=== PATIENT | male | born 1960 | race African-American/Black ===

== ENCOUNTER 2019-12-13 14:05 | Outpatient (CLI) | payer OTHER, SELFPAY ==
[2019-12-13 15:02] LABS: Basophils Percent Auto 0.4 % (0.2-1.2); Eosinophils Absolute Auto 0.2 K/mm3 (0-0.3); Eosinophils Percent Auto 3.4 % (0-4.4); Hematocrit 43.9 % (42.0-52.0); Hemoglobin 13.6 g/dL (14.0-18.0); Immature Granulocyte Absolute 0.02 K/mm3 (0.00-0.031); Immature Granulocyte Percent A 0.4 % (0-0.5); Lymphocytes Absolute Auto 2.21 K/mm3 (0.9-3.2); Lymphocytes Percent Auto 39.3 % (18.3-44.2); Mean Corpuscular Hemoglobin 23.5 pg (26-34); Mean Platelet Volume 10.7 fl (7.4-10.4); Monocytes Absolute Auto 0.4 K/mm3 (0.1-0.6); Monocytes Percent Auto 7.6 % (2.6-8.5); Neutrophils Absolute Auto 2.8 K/mm3 (1.3-6.7); Neutrophils Percent Auto 48.9 % (45.5-73.1); Platelet Count Result 276 k/mm3 (150-375); Red Blood Count 5.78 M/mm3 (4.6-6.20); White Blood Count 5.6 K/mm3 (4.5-10.0)
[2019-12-13 15:19] LABS: Alanine Aminotransferase 27 U/L (4-50); Albumin Level 4.4 g/dL (3.5-5.1); Alkaline Phosphatase 71 U/L (38-126); Anion Gap 10.4 mmol/L (7-16); Aspartate Amino Transferase 34 U/L (17-59); Bilirubin,Total 0.4 mg/dL (0.2-1.3); Blood Urea Nitrogen 14 mg/dL (9-20); Calcium 8.8 mg/dL (8.4-10.2); Carbon Dioxide 28 mmol/L (22-30); Chloride 103 mmol/L (98-107); Cholesterol 207 mg/dL (0-200); Estimated Glomerular Filt Rate > 60; Glucose 85 mg/dL (75-110); HDL Direct 50 mg/dL; Potassium 4.4 mmol/L (3.4-5.0); Sodium 137 mmol/L (137-145); Triglycerides 169 mg/dL (<150)
[2019-12-13 15:30] LABS: LDL Cholesterol Direct 109 mg/dL
== END 2019-12-13 14:06 | disposition home or self-care (01) ==
PROVIDERS: PCP Clinical Nurse Specialist; Visit Provider Clinical Nurse Specialist
DX: Z13.228 Encounter for screening for other metabolic disorders (principal); Z12.5 Encounter for screening for malignant neoplasm of prostate; Z13.220 Encounter for screening for lipoid disorders
CPT/HCPCS: 36415; 80053; 80061; 85025; 85306

== ENCOUNTER 2020-10-29 15:35 | Outpatient (CLI) | payer BC, MEDICAID, SELFPAY ==
[2020-10-29 16:15] LABS: Alanine Aminotransferase 23 U/L (4-50); Albumin Level 4.2 g/dL (3.5-5.1); Alkaline Phosphatase 62 U/L (38-126); Aspartate Amino Transferase 39 U/L (17-59); Bilirubin,Total 0.3 mg/dL (0.2-1.3)
== END 2020-10-29 15:36 | disposition home or self-care (01) ==
PROVIDERS: PCP Internal Medicine; Visit Provider Podiatrist Foot & Ankle Surgery
DX: B35.1 Tinea unguium (principal)
CPT/HCPCS: 36415; 80076

== ENCOUNTER 2021-02-12 15:40 | Emergency (ER) | payer BC, MEDICAID, SELFPAY ==
--- NOTE | ~2021-02-12 | XR_ITS ---
EXAMINATION: XR shoulder RT min 2V INDICATION: Right shoulder pain TECHNIQUE: Four views of the right shoulder are submitted. COMPARISON: None FINDINGS: Normal alignment. No fracture. There is moderate osteoarthritis of the acromioclavicular alcira int and mild osteoarthritis of the glenohumeral joint. Soft tissues are unremarkable. IMPRESSION: 1. No acute osseous abnormality. Reviewed, dictated and finalized at location A.
[2021-02-12 15:42] VITALS: BP 150/78; PULSE 85; RESP 18; TEMP 37.1; O2SAT 100
--- NOTE | 2021-02-12 15:58 | ED.EXTPRO ---
HPI - Extremity Problem General Chief complaint: Extremity Problem,Nontraumatic Stated complaint: SHOULDER PAIN Time Seen by Provider: 02/12/21 15:56 Source: RN notes reviewed History of Present Illness HPI Narrative: Patient presents emergency department from home for right shoulder pain. Patient states the pain has been ongoing for the past 6 months he denies any direct trauma or injury but states it did seem to occur after he received his Covid vaccination he states that the arm hurts when he raises it up over his head he denies any pain when is laying at rest on his side he denies any fevers or chills chest pain shortness of breath or any other symptoms states he not taking medication for the symptoms today Related Data Home Medications Medication Instructions Recorded Confirmed ferrous sulfate 325 mg (65 mg 325 mg PO DAILY 01/03/20 07/24/20 iron) tablet Allergies Allergy/AdvReac Type Severity Reaction Status Date / Time No Known Allergies Allergy Verified 02/12/21 15:56 Review of Systems Review of Systems: Gen.: Denies fevers or chills CV: Denies chest pain Respiratory: Denies shortness of breath Musculoskeletal: See HPI Neuro: Denies numbness, tingling, weakness Skin: Denies rash Endo: Denies DM PMFSH Past Medical History Medical History Broken wrist Right Cough due to HARDIK inhibitor Hyperlipidemia Family History Family History Sibling Cerebrovascular accident Social History Social History Smoking status: Never smoker Alcohol intake: never Substance use: never Exam Narrative: APPEARANCE: No acute distress, nontoxic, resting in bed EYES: EOMI HEENT: Normocephalic, atraumatic, RESPIRATORY: No respiratory distress Clear to auscultation bilaterally with no rhonchi wheezing or rales. CARDIOVASCULAR: Regular rate and rhythm without murmurs rubs or gallops. MUSCULOSKELETAl: Moves all extremities. No clubbing, cyanosis or edema. Palpation of the right anterior medial shoulder with point tenderness present no pain when arm is at rest pain to side pain with flexion of the shoulder greater than 45 degrees and abduction of the shoulder with the arm over the head no tenderness of the right elbow or wrist radial pulse 2+ neurovascular intact no overlying swelling or erythema NEURO: Awake and alert. Following commands, speech normal, no focal deficits SKIN:: Warm, dry. No rashes lesions or abrasions PSYCHIATRIC: Normal affect/mood, Course Course Emergency Course: Patient states at work he does throw a lot of things into a large garbage bin and this seems to exacerbate his pain Discussed with patient results of workup and diagnosis. Discussed need for follow-up with primary care, proper use of medication, and reasons to return to the emergency department. Patient understands and agrees to current treatment plan Vital Signs Vital signs: Vital Signs Temperature 98.7 F 02/12/21 15:42 Pulse Rate 85 02/12/21 15:42 Respiratory Rate 18 02/12/21 15:42 Blood Pressure 150/78 H 02/12/21 15:42 Pulse Oximetry 100 02/12/21 15:42 Temperature 98.7 F 02/12/21 15:42 Pulse Rate 85 02/12/21 15:42 Respiratory Rate 18 02/12/21 15:42 Blood Pressure 150/78 H 02/12/21 15:42 Pulse Oximetry 100 02/12/21 15:42 MDM - Extremity (Nontraumatic) MDM Narrative Medical decision making narrative: Patient?s injury is consistent with muscular skeletal etiology. No signs of neurologic or vascular compromise to exam. Compartments are soft without signs of compartment syndrome. Pain is consistent with exam and injury Imaging Data Radiologist's impression: ITS Impressions Shoulder X-Ray 02/12/21 16:18 IMPRESSION: 1. No acute osseous abnormality. Discharge Plan Discharge Clinical Impression: Pain in right shoulder
[2021-02-12] MEDS: IBUPROFEN 600 MG TABLET PO (16:18)
== END 2021-02-12 16:38 | disposition home or self-care (01) ==
PROVIDERS: Emergency Provider Emergency Medicine; PCP Internal Medicine
DX: M25.511 Pain in right shoulder (principal); E78.5 Hyperlipidemia, unspecified
CPT/HCPCS: 73030; 99283; A9270

== ENCOUNTER 2021-03-10 13:27 | Outpatient (RCR) | payer BC, MEDICAID, SELFPAY ==
[2021-03-10 13:56] VITALS: BP_SYST 170
--- NOTE | 2021-03-10 16:05 | PTOPEVAL ---
Thank you for referring Rj Salmeron to [facility].? The patient is scheduled to be seen for therapy?2 x/week for 5 weeks. Please review, sign, date and return this plan of care ONUR. I agree with and certify that the following plan of care is medically necessary. Referring Physician Date Attending Provider: Laura Dave, UTILITY CLERK-C Diagnosis right shoulder pain Onset 02/12/21 Cause lifting object Subjective Information He thinks he lifted something Query Text:As Reported By Patient/ heavy a few months ago while Family working at [employer]. He c/o limitations with with reaching motion in all directions, ADL's. States the right arm feels different . Denies pain at night with sleeping. Diagnostic Tests X-Rays For This Problem Yes: normal Pain Assessment Self Report Pain Assessment Right Shoulder(s) Reported Pain Level 4 Pain Description Aching,Sharp Pain Frequency Acute,Continuous Lowest Pain Intensity 3 Greatest Pain Intensity 8 Pain Aggravating Factors ADL's,Exercise/Activity, Lifting Upper Extremity Range of Motion Scapular/ Shoulder Range of Motion Right Scapular: Retraction Hypomobile Scapular: Protraction Hypomobile Scapular Downward Rotation Hypomobile Scapular Upward Rotation Hypomobile Shoulder Flexion - Active 152 Shoulder Flexion - Passive 155 Shoulder Extension - Active 35 Shoulder Abduction - Active 120 Shoulder Abduction - Passive 170 Shoulder Medial Rotation - Active 45 Shoulder Lateral Rotation - Active 80 Scapular/Shoulder Range of Motion Pain Limitations Upper Extremity Muscle Strength Testing General Upper Extremity Strength Reason Not Measured WNL/Left Scapular/Shoulder Right Scapular Retraction - Rhomboid 3- Fair - Scapular Retraction - Middle Trapezius 3- Fair - Scapular Retraction - Lower Trapezius 3- Fair - Shoulder Flexion Strength 3+ Fair + Shoulder Extension Strength 4- Good - Shoulder Abduction Strength 3+ Fair + Shoulder Medial Rotation Strength 5 Normal Shoulder Lateral Rotation Strength 5 Normal Shoulder Strength Comments pain with flex/ext and abduction resistance Posture Sitting Position Head/C-Spine Posture Forward Head Thoracic Spine Posture Increased Kyphosis Shoulder Posture (L) Rounded,(R) Rounded,(L) Forward,(R) Forward,(R) Elevated Scapula Posture
--- NOTE | 2021-03-20 14:36 | PCPTNOTE ---
Patient did not show up for scheduled appointment this date; called to remind patient of next appointment but mailbox was full.
--- NOTE | 2021-03-31 16:49 | PCPTNOTE ---
Patient did not show up for scheduled appointment this date; called for reminder on next appointment which patient answered stating made pervious appointments which he wasn't aware of when his appointments were. Already rescheduled next weeks appointment due to having car worked on.
--- NOTE | 2021-04-09 10:58 | PCPTNOTE ---
Patient called & cancelled scheduled appointment this date due to not having car back from shop wanted to reschedule but notified front office developer of reeval scheduled for Wednesday and he is at his policy limit for no shows and cancellations.
--- NOTE | 2021-04-15 14:47 | PCPTNOTE ---
Patient did not show up for scheduled appointment this date. He had been reminded of his appt and reviewed cancelation policy. Will DC him at this time.
--- NOTE | 2021-04-15 14:47 | PCPTNOTE ---
Admitting Provider: Attending Provider: ARTIS Chapman Patient:Rj Salmeron Date of :1960 Discharge Summary Physical Therapy Patient has not returned for any further treatments since his initial evaluation on 03/10/2021, therefore he will be discharged at this time. He did not attend his follow up visits with 5 missed visits. No goals have been achieved due to he did not f/u with therapy. Will DC skilled therapy services at this time. Thank you for referring this patient to [facility]. Please review, sign, date and return this discharge summary ONUR. I have been updated about the patient's current status and I agree with discharge from the above service at this time. Referring Physician Date
== END 2021-04-16 08:35 | disposition home or self-care (01) ==
LOC: ANHPT 13:27
PROVIDERS: PCP Internal Medicine; Visit Provider Clinical Nurse Specialist
DX: M25.511 Pain in right shoulder (principal)
CPT/HCPCS: 97110; 97161

== ENCOUNTER 2021-05-28 15:31 | Emergency (ER) | payer BC, MEDICAID, SELFPAY ==
[2021-05-28 15:40] VITALS: BP 158/96; PULSE 85; RESP 18; TEMP 36.6; O2SAT 100
--- NOTE | 2021-05-28 16:19 | ED.SKABFB ---
HPI - Skin/Abscess/Foreign Bdy General Chief complaint: Skin/Abscess/Foreign Body Stated complaint: L middle finger injury Time Seen by Provider: 05/28/21 16:20 Source: patient Mode of arrival: ambulatory Limitations: no limitations History of Present Illness HPI narrative: 60-year-old male presenting for complaint of middle finger pain and swelling around fingernail for about 3 days. Endorses a history of paronychia in the remote past. Currently rates pain about a 5 out of 10. Has not taken anything for symptoms. MD complaint: rash Related Data Allergies Allergy/AdvReac Type Severity Reaction Status Date / Time No Known Allergies Allergy Verified 02/12/21 15:56 Review of Systems Review of Systems: CONSTITUTIONAL: Denies body aches, fever, chills, or sweats. EYES: Denies visual changes, redness, or discharge. ENT: Denies rhinorrhea, congestion, sore throat, or otalgia. CARDIOVASCULAR: Denies chest pain, palpitations, or edema. RESPIRATORY: Denies cough or dyspnea. GASTROINTESTINAL: Denies abdominal pain, nausea, vomiting, or diarrhea. GENITOURINARY: Denies dysuria or hematuria. SKIN: endorses pain, redness, swelling surrounding left middle finger nail MUSCULOSKELETAL: Denies back pain, joint pain, or myalgia. NEUROLOGIC: Denies headache, numbness, tingling, or weakness. PSYCH: Denies depression or anxiety. PMFSH Past Medical History Medical History Broken wrist Right Cough due to HARDIK inhibitor Hyperlipidemia Family History Family History Sibling Cerebrovascular accident Social History Social History Smoking status: Never smoker Alcohol intake: never Substance use: never Comments At time of signature, I have reviewed and agree with nursing past medical, surgical, social and family history unless otherwise noted. Please see nursing chart for further information. There is no relevant family history pertinent to the presenting complaint Exam Narrative: GENERAL: Well-appearing, well-nourished, and in no acute distress. HEAD: Normocephalic, atraumatic. EYES: PERRLA, conjunctivae clear, and EOMI. ENT: Mucous membranes moist. NECK: Supple. No lymphadenopathy CHEST: Clear to auscultation. No respiratory distress. HEART: Regular rate and rhythm. SKIN: Warm, dry. Left third digit paronychia NEURO: Alert and oriented x3. PSYCH: Normal mood and affect Course Course Emergency Course: Patient is aware of diagnosis, understands and agrees to treatment plan. Anticipatory guidance given. Patient agrees to follow-up as directed and is aware of reasons to seek care at the emergency department. Portions of this record may have been created with voice recognition software Level of Care: Express Care Visit Vital Signs Vital signs: Vital Signs Temperature 97.9 F 05/28/21 15:40 Pulse Rate 85 05/28/21 15:40 Respiratory Rate 18 05/28/21 15:40 Blood Pressure 158/96 H 05/28/21 15:40 Pulse Oximetry 100 05/28/21 15:40 Temperature 97.9 F 05/28/21 15:40 Pulse Rate 85 05/28/21 15:40 Respiratory Rate 18 05/28/21 15:40 Blood Pressure 158/96 H 05/28/21 15:40 Pulse Oximetry 100 05/28/21 15:40 Reviewed Procedures Abscess I/D left 3rd digit: Date of Incision: 05/28/21 Time of Incision: 16:48 Side (if applicable): left Sedation/analgesia: none Technique: needle aspiration Irrigation: No Packing used?: none I&D Results: Pus Abcess I&D Additional Comments: paronychia drained with #18 g needle after soaking, large amount purulent material expressed; bandaid and LEXX applied, pt tolerated well MDM - Skin/Abscess/Foreign Bdy MDM Narrative Medical decision making narrative: appropriate for initial outpatient treatment; discussed the importance of follow-up, josé
== END 2021-05-28 16:59 | disposition home or self-care (01) ==
PROVIDERS: Emergency Provider Nurse Practitioner Family
DX: L03.012 Cellulitis of left finger (principal); E78.5 Hyperlipidemia, unspecified
CPT/HCPCS: 10160; 99213; G0463

== ENCOUNTER 2021-12-15 08:43 | Outpatient (CLI) | payer BC, MEDICAID, SELFPAY ==
[2021-12-15 18:48] LABS: Basophils Percent Auto 0.8 % (0.2-1.2); Eosinophils Absolute Auto 0.1 K/mm3 (0-0.3); Eosinophils Percent Auto 1.6 % (0-4.4); Hematocrit 45.3 % (42.0-52.0); Hemoglobin 13.3 g/dL (14.0-18.0); Immature Granulocyte Absolute 0.01 K/mm3 (0.00-0.031); Immature Granulocyte Percent A 0.2 % (0-0.5); Lymphocytes Absolute Auto 2.06 K/mm3 (0.9-3.2); Lymphocytes Percent Auto 41.4 % (18.3-44.2); Mean Corpuscular HGB Conc 29.4 g/dl (32-36); Mean Corpuscular Hemoglobin 23.1 pg (26-34); Mean Corpuscular Volume 78.6 fl (80-100); Mean Platelet Volume 10.8 fl (7.4-10.4); Monocytes Absolute Auto 0.5 K/mm3 (0.1-0.6); Monocytes Percent Auto 9.4 % (2.6-8.5); Neutrophils Absolute Auto 2.3 K/mm3 (1.3-6.7); Neutrophils Percent Auto 46.6 % (45.5-73.1); Platelet Count Result 257 k/mm3 (150-375); Red Blood Count 5.76 M/mm3 (4.6-6.20)
[2021-12-15 19:05] LABS: Alanine Aminotransferase 23 U/L (6-50); Albumin Level 4.3 g/dL (3.5-5.1); Alkaline Phosphatase 74 U/L (38-126); Anion Gap 10 mmol/L (8-16); Aspartate Amino Transferase 42 U/L (17-59); Bilirubin,Total 0.6 mg/dL (0.2-1.3); Blood Urea Nitrogen 17 mg/dL (9-20); Carbon Dioxide 27 mmol/L (22-30); Chloride 100 mmol/L (98-107); Cholesterol 193 mg/dL (0-200); Estimated Glomerular Filt Rate > 60; Glucose 125 mg/dL (65-110); HDL Direct 49 mg/dL; Potassium 4.2 mmol/L (3.4-5.0); Sodium 137 mmol/L (137-145); Triglycerides 108 mg/dL (<150)
[2021-12-15 19:16] LABS: LDL Cholesterol Direct 93 mg/dL
[2021-12-15 19:29] LABS: Prostate Specific Antigen 0.6 ng/mL (< OR = 4.0)
[2021-12-17 10:29] LABS: Hemoglobin A1C 6.1 % (<5.7)
== END 2021-12-15 08:44 | disposition home or self-care (01) ==
LOC: ANHGOSHLAB 08:45
PROVIDERS: PCP Internal Medicine; Visit Provider Nurse Practitioner
DX: E78.5 Hyperlipidemia, unspecified (principal); R73.9 Hyperglycemia, unspecified; I10 Essential (primary) hypertension; Z12.5 Encounter for screening for malignant neoplasm of prostate
CPT/HCPCS: 36415; 80053; 80061; 83036; 84153; 85025; G0103

== ENCOUNTER 2022-02-13 19:31 | Emergency (ER) | payer OTHER, BC, MEDICAID, SELFPAY ==
--- NOTE | 2022-02-13 19:32 | ED.WOUNDLAC ---
HPI - Wound/Laceration General Stated Complaint: L HAND LACERATION Time Seen by Provider: 02/13/22 19:32 Source: patient Mode of arrival: ambulatory Limitations: no limitations History of Present Illness HPI narrative: Mr. Salmeron is a 61-year-old male patient presenting to the clinic today with complaints of a cut to his left hand/palm. He reports he stabbed himself with a knife at work approximately 20 minutes prior to arrival. Bleeding is controlled. States they put some liquid Band-Aid on it however that did not help. States that his tetanus shot is up-to-date within the last 5 years Related Data Allergies Allergy/AdvReac Type Severity Reaction Status Date / Time No Known Allergies Allergy Verified 02/13/22 19:57 Review of Systems Review of Systems: Pertinent positives per HPI. Patient denies any fever, chills, rash, headache, visual changes, dizziness, cough, runny nose, sore throat, shortness of breath, chest pain, palpitations, nausea, vomiting, diarrhea, constipation, abdominal pain, or any urinary issues. PMFSH Past Medical History Medical History Broken wrist Right Cough due to HARDIK inhibitor Hyperlipidemia Family History Family History Sibling Cerebrovascular accident Social History Social History Smoking status: Never smoker Alcohol intake: never Substance use: never Comments At the time of my signature, I reviewed and agree with the nursing past medical, surgical, social, and family history. There is no relevant family history pertinent to the patient complaint. Exam Narrative: General: Well-developed, well nourished, in no apparent distress Head: Normocephalic, atraumatic. Cardio: Regular rate and rhythm, s1 and s2 normal, no murmur appreciated. Resp: Clear to auscultation bilaterally, no rhonchi, rales, wheezing or rubs. Integumentary: [place], warm, and dry, 1.5 cm laceration to the mid palm of the left hand. Bleeding controlled. Course Course Emergency Course: Portions of this record may have been created with voice recognition software. Level of Care: Express Care Visit Vital Signs Vital signs: Vital signs reviewed Procedures Laceration Laceration 1: Date: 02/13/22 Site: hand Side (If applicable): left Size (cm): 1.5 Description: linear Depth: simple, single layer Local Anesthetic: lidocaine 1% Amount of anesthesia used (mL): 2 Pre-repair: wound explored and irrigated ====== Skin Level ====== Skin layer closed with: nylon Size (cm): 4-0 Number of sutures: 2 Technique: simple, interrupted ====== Subcutaneous Layer ====== ====== Muscle Layer ====== ====== Tendon Layer ====== Dressing: Verbal consent obtained for laceration repair. Risk and benefits explained and patient voiced understanding. Area was cleansed with Techni care and a 25 gauge needle was then used to instill (2) ml of 1% lidocaine without epi into the wound edges. Area was prepped and draped using sterile technique. A 4-0 suture on a p needle was used to place (2) interrupted sutures bringing the wound edges together- well approximated. Patient tolerated procedure well. Sterile dressing applied. MDM - Wound/Laceration MDM Narrative Medical decision making narrative: At the time of visit patient is resting comfortably on the exam table. Laceration repair performed in the clinic today and patient tolerated procedure well. Supportive measures were discussed with the patient he voiced understanding of discharge instructions and agrees to treatment plan. Differential Diagnosis Differential diagnosis: Likely laceration and avulsion of skin Discharge Plan Discharge Clinical Impression: Hand laceration Qualifiers:
[2022-02-13 19:43] VITALS: BP 175/95; PULSE 73; RESP 16; TEMP 36.7; O2SAT 100
[2022-02-13] MEDS: LIDOCAINE HCL 1% LOCAL INJ 2 ML AMPUL INFILTRATE (19:49)
[2022-02-13 19:57] VITALS: BP 175/95; PULSE 73; RESP 16; TEMP 36.7; O2SAT 100
== END 2022-02-13 20:05 | disposition home or self-care (01) ==
PROVIDERS: Emergency Provider Nurse Practitioner Family; PCP Internal Medicine
DX: S61.412A Laceration without foreign body of left hand, initial encounter (principal); W26.0XXA Contact with knife, initial encounter; E78.5 Hyperlipidemia, unspecified
CPT/HCPCS: 12001; 99212; G0463

== ENCOUNTER 2023-02-16 14:53 | Outpatient (CLI) | payer BC, MEDICAID, SELFPAY ==
[2023-02-16 18:27] LABS: Basophils Percent Auto 0.5 % (0.2-1.2); Eosinophils Absolute Auto 0.4 K/mm3 (0-0.3); Eosinophils Percent Auto 5.9 % (0-4.4); Hemoglobin 12.6 g/dL (14.0-18.0); Immature Granulocyte Absolute 0.01 K/mm3 (0.00-0.031); Immature Granulocyte Percent A 0.2 % (0-0.5); Lymphocytes Absolute Auto 2.51 K/mm3 (0.9-3.2); Lymphocytes Percent Auto 37.9 % (18.3-44.2); Mean Corpuscular Hemoglobin 23.4 pg (26-34); Mean Corpuscular Volume 78.1 fl (80-100); Mean Platelet Volume 10.4 fl (7.4-10.4); Monocytes Absolute Auto 0.7 K/mm3 (0.1-0.6); Monocytes Percent Auto 10.6 % (2.6-8.5); Neutrophils Percent Auto 44.9 % (45.5-73.1); Platelet Count Result 299 k/mm3 (150-375); Red Blood Count 5.38 M/mm3 (4.6-6.20); Red Cell Distribution Width 14.2 % (11.5-14.5); White Blood Count 6.6 K/mm3 (4.5-10.0)
[2023-02-16 19:05] LABS: Iron 68 ug/dL (49-181)
[2023-02-16 19:15] LABS: Percent Iron Saturation 28 % (20-50)
[2023-02-16 19:41] LABS: Alanine Aminotransferase 22 U/L (6-50); Albumin Level 4.1 g/dL (3.5-5.1); Alkaline Phosphatase 71 U/L (38-126); Anion Gap 5 mmol/L (8-16); Aspartate Amino Transferase 38 U/L (17-59); Bilirubin,Total 0.5 mg/dL (0.2-1.3); Blood Urea Nitrogen 17 mg/dL (9-20); Calcium 8.8 mg/dL (8.4-10.2); Carbon Dioxide 30 mmol/L (22-30); Chloride 102 mmol/L (98-107); Cholesterol 181 mg/dL (0-200); Estimated Glomerular Filt Rate > 60; Glucose 73 mg/dL (65-110); HDL Direct 46 mg/dL; Potassium 4.1 mmol/L (3.4-5.0); Sodium 137 mmol/L (137-145); Triglycerides 156 mg/dL (<150)
[2023-02-16 19:53] LABS: LDL Cholesterol Direct 93 mg/dL
[2023-02-16 20:12] LABS: Hemoglobin A1C 5.9 % (<5.7)
== END 2023-02-16 14:54 | disposition home or self-care (01) ==
LOC: ANHGOSHLAB 14:54
PROVIDERS: PCP Internal Medicine; Visit Provider Nurse Practitioner
DX: R73.03 Prediabetes (principal); D64.9 Anemia, unspecified; E78.5 Hyperlipidemia, unspecified; I10 Essential (primary) hypertension
CPT/HCPCS: 36415; 80053; 80061; 82728; 83036; 83540; 83550; 85025

== ENCOUNTER 2023-04-20 01:00 | Day surgery (SDC) | payer BC, MEDICAID, SELFPAY ==
[2023-04-13 10:32] VITALS: BMI 28.3
--- NOTE | 2023-04-16 11:40 | SUR.PREOP ---
Patient called regarding upcoming procedure. Message left on patient's voicemail regarding preop instructions, appointment times, and procedure prep.
[2023-04-20 11:18] VITALS: BP 160/80; PULSE 69; RESP 20; TEMP 35.9; O2SAT 100; BMI 26.9
--- NOTE | 2023-04-20 11:28 | P.PNAN_ITS ---
Anes - Initial Pre Proc Eval Procedure: Operation Date: 04/20/23 12:00 Proposed Procedures p Screening Colonoscopy - Antoine Ortiz MD Date/Time: 04/20/23 11:28 Surgeon: Antoine Ortiz MD Pre Op Diagnosis: neoplasm screening Patient Data Age: 62 Gender: M Height: 1.63 m Weight: 71.3 kg Last Vital Signs Temp 96.6 F L 04/20/23 11:18 Pulse 69 04/20/23 11:18 Resp 20 04/20/23 11:18 BP 160/80 H 04/20/23 11:18 Pulse Ox 100 04/20/23 11:18 O2 Del Method Room Air 04/20/23 11:18 Allergies Allergy/AdvReac Type Severity Reaction Status Date / Time No Known Allergies Allergy Verified 04/20/23 11:17 Home Medications Medication Instructions Recorded Confirmed Type losartan 100 mg tablet 100 mg PO DAILY #90 tabs 06/22/22 04/20/23 Rx Patient hx anesthesia problems: none Family hx anesthesia problems: none Results Review: All pre-operative results and documents have been reviewed as part of the pre- operative evaluation. [facility] Past Medical History Medical History Broken wrist Right Cough due to HARDIK inhibitor Hyperlipidemia Family History Family History Sibling Cerebrovascular accident Social History Social History (Updated 10/19/22 @ 10:13 by Gisel Jimenez CMA) Smoking status: Never smoker Alcohol intake: never Substance use: never Substance use type: does not use Lack of Transportation: No Lack of Food: Never True Current Housing: I Have Housing Concerned About Future Housing: Decline to Answer Difficulty Paying Gas/Electric Bills: No Difficulty Paying for Meds: No Currently Unemployed: No Education: High School Diploma/GED Living arrangements: with family Additional living arrangements comments: lives with girlfriend and her son Spiritual care concerns: No Anes - Eval Final PreProcedure Day of Procedure 04/20/23 11:28 Patient weight: normal Heart: regular rate and rhythm Lungs: clear to auscultation Neurological: alert and oriented Last oral intake: >/= 8 hours ASA classification: II Emergent: no Anesthetic plan: proceed Anesthesia type and monitoring: general GIVS and standard monitoring Results Review: All pre-operative results and documents have been reviewed as part of the pre- operative evaluation. Informed Consent: The patient's anesthetic plan and its attendant risks and benefits were discussed with the patient/family/POA. Questions were solicited and answers provided to the satisfaction of the patient/family/POA.
[2023-04-20] MEDS: LACTATED RINGERS 1,000 ML 150 ML IV CONT (11:30)
--- NOTE | 2023-04-20 11:41 | P.HP_ITS ---
History of Present Illness History of Present Illness Consent: Risks, benefits, and alternatives have been discussed and questions answered. Patient agrees to proceed with procedure. Chief complaint: neoplasm screening Narrative: Rj Salmeron is a 62 year old male Presents for screening colonoscopy. Patient's current weight appetite and bowel movements are normal. Patient denies abdominal pain. He has had no bleeding. Family history noncontributory. Previous colonoscopy 2017 was unremarkable. Review of Systems Review of Systems: Review of systems noncontributory. [facility] Past Medical History Medical History Broken wrist Right Cough due to HARDIK inhibitor Hyperlipidemia Family History Family History Sibling Cerebrovascular accident Social History Social History (Updated 10/19/22 @ 10:13 by Gisel Jimenez CMA) Smoking status: Never smoker Alcohol intake: never Substance use: never Substance use type: does not use Lack of Transportation: No Lack of Food: Never True Current Housing: I Have Housing Concerned About Future Housing: Decline to Answer Difficulty Paying Gas/Electric Bills: No Difficulty Paying for Meds: No Currently Unemployed: No Education: High School Diploma/GED Living arrangements: with family Additional living arrangements comments: lives with girlfriend and her son Spiritual care concerns: No Meds Home Medications and Allergies Home Medications Medication Instructions Recorded Confirmed Type losartan 100 mg tablet 100 mg PO DAILY #90 tabs 06/22/22 04/20/23 Rx Allergies Allergy/AdvReac Type Severity Reaction Status Date / Time No Known Allergies Allergy Verified 04/20/23 11:17 Vital Signs Vital Signs - 24 hr 04/20/23 11:18 Temperature 96.6 F L Pulse Rate 69 Respiratory Rate 20 Blood Pressure 160/80 H Pulse Oximetry 100 Oxygen Delivery Room Air Exam Narrative: Physical exam reveals patient to be alert. Vital signs stable. HEENT exam is unremarkable. Patient is anicteric. Lungs are clear to auscultation and percussion. Heart is without murmur or extra sounds. Abdomen bowel sounds are present soft nontender with no organomegaly. Digital external rectal exam normal. Assessment and Plan Assessment and plan (1) Screening for colon cancer: Code(s): Z12.11 - Encounter for screening for malignant neoplasm of colon Status: Acute Assessment and Plan: Patient presents today for screening colonoscopy. He appears to be at average risk for colon polyps. Further recommendations may be given after endoscopy.
[2023-04-20 12:35] VITALS: BP 84/69; PULSE 63; RESP 16; O2SAT 100
[2023-04-20 12:43] VITALS: BP 85/52; PULSE 62; RESP 16; O2SAT 100
[2023-04-20 12:45] VITALS: BP 100/60; PULSE 53; RESP 16; O2SAT 100
[2023-04-20 12:54] VITALS: BP 96/73; PULSE 53; RESP 16; O2SAT 100
[2023-04-20 13:00] VITALS: BP 116/65; PULSE 51; RESP 16; O2SAT 100
== END 2023-04-20 13:17 | disposition home or self-care (01) ==
PROVIDERS: PCP Internal Medicine; Visit Provider Internal Medicine Gastroenterology
PROC: 0DJD8ZZ Inspection of Lower Intestinal Tract, Via Natural or Artificial Opening Endoscopic (ICD-10-PCS; CPT 45378; principal; 2023-04-20 12:00)
DX: Z12.11 Encounter for screening for malignant neoplasm of colon (principal); E78.5 Hyperlipidemia, unspecified
CPT/HCPCS: 45378; J2704; J7120

== ENCOUNTER 2023-11-02 14:24 | Outpatient (CLI) | payer BC, SELFPAY ==
[2023-11-02 18:43] LABS: Basophils Percent Auto 0.7 % (0.2-1.2); Eosinophils Absolute Auto 0.3 K/mm3 (0-0.3); Eosinophils Percent Auto 5.3 % (0-4.4); Hemoglobin 13.3 g/dL (14.0-18.0); Immature Granulocyte Absolute 0.01 K/mm3 (0.00-0.031); Immature Granulocyte Percent A 0.2 % (0-0.5); Lymphocytes Absolute Auto 2.38 K/mm3 (0.9-3.2); Lymphocytes Percent Auto 41.7 % (18.3-44.2); Mean Corpuscular HGB Conc 30.9 g/dl (32-36); Mean Corpuscular Hemoglobin 23.6 pg (26-34); Mean Corpuscular Volume 76.2 fl (80-100); Mean Platelet Volume 10.6 fl (7.4-10.4); Monocytes Absolute Auto 0.5 K/mm3 (0.1-0.6); Monocytes Percent Auto 9.5 % (2.6-8.5); Neutrophils Absolute Auto 2.4 K/mm3 (1.3-6.7); Neutrophils Percent Auto 42.6 % (45.5-73.1); Platelet Count Result 258 k/mm3 (150-375); Red Blood Count 5.64 M/mm3 (4.6-6.20); Red Cell Distribution Width 14.2 % (11.5-14.5); White Blood Count 5.7 K/mm3 (4.5-10.0)
[2023-11-02 19:20] LABS: Prostate Specific Antigen 0.8 ng/mL (< OR = 4.0)
[2023-11-02 19:34] LABS: Hemoglobin A1C 5.9 % (<5.7)
[2023-11-02 19:59] LABS: Folic Acid 7.2 ng/mL (2.76->20)
== END 2023-11-02 14:25 | disposition home or self-care (01) ==
PROVIDERS: PCP Internal Medicine; Visit Provider Nurse Practitioner
DX: Z12.5 Encounter for screening for malignant neoplasm of prostate (principal); D64.9 Anemia, unspecified; E78.5 Hyperlipidemia, unspecified; R73.03 Prediabetes
CPT/HCPCS: 36415; 82607; 82746; 83036; 84153; 85025; G0103

== ENCOUNTER 2024-04-11 09:25 | Outpatient (CLI) | payer BC, SELFPAY ==
[2024-04-11 12:05] LABS: Basophils Percent Auto 0.7 % (0.2-1.2); Eosinophils Absolute Auto 0.2 K/mm3 (0-0.3); Eosinophils Percent Auto 5.1 % (0-4.4); Hematocrit 46.1 % (42.0-52.0); Immature Granulocyte Absolute 0.02 K/mm3 (0.00-0.031); Immature Granulocyte Percent A 0.4 % (0-0.5); Lymphocytes Absolute Auto 1.78 K/mm3 (0.9-3.2); Lymphocytes Percent Auto 39.3 % (18.3-44.2); Mean Corpuscular HGB Conc 30.4 g/dl (32-36); Mean Corpuscular Hemoglobin 23.5 pg (26-34); Mean Corpuscular Volume 77.5 fl (80-100); Mean Platelet Volume 10.2 fl (7.4-10.4); Monocytes Absolute Auto 0.4 K/mm3 (0.1-0.6); Monocytes Percent Auto 9.7 % (2.6-8.5); Neutrophils Percent Auto 44.8 % (45.5-73.1); Platelet Count Result 269 k/mm3 (150-375); Red Blood Count 5.95 M/mm3 (4.6-6.20); Red Cell Distribution Width 14.7 % (11.5-14.5); White Blood Count 4.5 K/mm3 (4.5-10.0)
[2024-04-11 12:45] LABS: LDL Cholesterol Direct 89 mg/dL
[2024-04-11 12:49] LABS: Alanine Aminotransferase 28 U/L (6-50); Albumin Level 4.4 g/dL (3.5-5.1); Alkaline Phosphatase 71 U/L (38-126); Anion Gap 5 mmol/L (4-12); Aspartate Amino Transferase 48 U/L (17-59); Bilirubin,Total 0.6 mg/dL (0.2-1.3); Blood Urea Nitrogen 15 mg/dL (9-20); Calcium 8.8 mg/dL (8.4-10.2); Carbon Dioxide 29 mmol/L (22-30); Chloride 103 mmol/L (98-107); Cholesterol 197 mg/dL (0-200); Estimated Glomerular Filt Rate > 60; Glucose 98 mg/dL (65-110); HDL Direct 55 mg/dL; Potassium 4.4 mmol/L (3.4-5.0); Sodium 137 mmol/L (137-145); Triglycerides 78 mg/dL (<150)
[2024-04-11 12:59] LABS: Hemoglobin A1C 6.2 % (<5.7)
[2024-04-11 15:14] LABS: CRP < 0.5 mg/dL (<1.0)
== END 2024-04-11 09:26 | disposition home or self-care (01) ==
LOC: ANHGOSHLAB 09:27
PROVIDERS: PCP Internal Medicine; Visit Provider Nurse Practitioner
DX: R73.03 Prediabetes (principal); E78.5 Hyperlipidemia, unspecified; D64.9 Anemia, unspecified
CPT/HCPCS: 36415; 80053; 80061; 83036; 85025; 86140

== ENCOUNTER 2024-05-08 15:21 | Emergency (ER) | payer BC, SELFPAY ==
[2024-05-08 15:28] VITALS: BP 155/90; PULSE 83; RESP 20; TEMP 36.8; O2SAT 100
--- NOTE | 2024-05-08 18:52 | ED.GENADULT ---
HPI - General Adult General Chief complaint: Unspecified Stated complaint: lump behind left ear Time Seen by Provider: 05/08/24 18:27 History of Present Illness HPI narrative: 63-year-old male presenting with a bump behind his left ear. States that been there for the last couple days. It is not painful or tender. States that he has had a very mild headache so he became concern. No further complaints. Related Data Allergies Allergy/AdvReac Type Severity Reaction Status Date / Time No Known Allergies Allergy Verified 05/03/24 14:08 Review of Systems Review of Systems: All systems reviewed & are unremarkable except as noted in HPI and below PMFSH Past Medical History Medical History Hyperlipidemia Cough due to HARDIK inhibitor Broken wrist Right Family History Family History Sibling Cerebrovascular accident Social History Social History Smoking status: Never smoker Alcohol intake: never Substance use: never Substance use type: does not use Lack of Transportation: No Lack of Food: Never True Current Housing: I Have Housing Concerned About Future Housing: Decline to Answer Difficulty Paying Gas/Electric Bills: No Difficulty Paying for Meds: No Currently Unemployed: YES Education: High School Diploma/GED Difficulty w/ Childcare or Family Care: No Living arrangements: with family Additional living arrangements comments: lives with girlfriend and her son Spiritual care concerns: No Exam Narrative: GENERAL: Well-appearing, In no acute distress, pleasant cooperative HEAD: Normocephalic, atraumatic. small mobile bump posterior to the left ear that is nontender, nonerythematous EYES: PERRLA and EOMI. ENT: Mucous membranes moist. NECK: Supple. CHEST: No respiratory distress. HEART: Regular rate and rhythm EXTREMITIES: Normal range of motion. SKIN: Warm, dry, no rash. NEURO: Alert and oriented x3. PSYCH: Normal mood and affect. Course Vital Signs Vital signs: Vital Signs Temperature 98.2 F 05/08/24 15:28 Pulse Rate 83 05/08/24 15:28 Respiratory Rate 20 05/08/24 15:28 Blood Pressure 155/90 H 05/08/24 15:28 Pulse Oximetry 100 12/23/24 15:28 Temperature 98.2 F 05/08/24 15:28 Pulse Rate 83 05/08/24 15:28 Respiratory Rate 20 05/08/24 15:28 Blood Pressure 155/90 H 05/08/24 15:28 Pulse Oximetry 100 05/08/24 15:28 Medical Decision Making MDM Narrative Medical decision making narrative: 63-year-old male presenting with a nontender bump behind his left ear. Exam remarkable for the above. No evidence of cellulitis or abscess. He has a very small mobile bump posterior to the left ear it is nontender. feel he is safe for outpatient management with supportive care. Tylenol for pain. Close PCP follow-up. He is agreeable this plan. Discharged in stable condition. Vital Signs Vital Signs: Vital Signs Temperature 98.2 F 05/08/24 15:28 Pulse Rate 83 05/08/24 15:28 Respiratory Rate 20 05/08/24 15:28 Blood Pressure 155/90 H 05/08/24 15:28 Pulse Oximetry 100 05/08/24 15:28 Temperature 98.2 F 05/08/24 15:28 Pulse Rate 83 05/08/24 15:28 Respiratory Rate 20 05/08/24 15:28 Blood Pressure 155/90 H 05/08/24 15:28 Pulse Oximetry 100 05/08/24 15:28 Critical Care Time Critical Care Time Critical Care Time: No Discharge Plan Discharge Clinical Impression: Skin lesion Patient Disposition: Home, Self-Care Condition: Stable Instructions: Antibiotic Form Additional Instructions: We are reassured by your physical exam. You may use Tylenol for pain control. Follow-up with your primary care provider. If your symptoms worsen or other concerning symptoms arise, please return to the ER. Patient Language: Spanish Prescriptions: No Action losartan 100 mg tablet 100 mg PO DAILY Qty: 90 3RF Patient Comments: reports not taking this medication for awhile Follow-up/Referrals: Brendan He, [Primary Care Provider] -
== END 2024-05-08 19:09 | disposition home or self-care (01) ==
PROVIDERS: Emergency Provider Emergency Medicine; PCP Internal Medicine
DX: L98.9 Disorder of the skin and subcutaneous tissue, unspecified (principal)
CPT/HCPCS: 99281

== ENCOUNTER 2024-11-01 08:14 | Outpatient (CLI) | payer BC, SELFPAY ==
--- OUTSIDE RECORDS SUMMARY | 2024-11-01 08:20 | XMS_ITS | Referral Summary ---
Author Organization [facility] [place] [address] Address [address] [place] [id number] Care Team Providers Care Sample Tester Grinder Name Role Phone Unknown, Notinfile Primary Care Provider Unavail able Allergies No known active allergies Medications No known medications Active Problems No known active problems Social History Tobacco Use Types Packs/Day Years Used Date Smoking Tobacco: Never Assessed Sex and Gender Information Value Date Recorded Sex Assigned at Not on file Legal Sex Male 10:51 AM BODY BUMPER Gender Identity Not on file Sexual Orientation Not on file Last Filed Vital Signs Vital Sign Reading Time Taken Comments Blood Pressure 168/92 03/30/2024 2:50 PM BODY BUMPER Pulse 89 03/30/2024 2:50 PM BODY BUMPER Temperature 36.6 C (97.9 F) 03/30/2024 2:50 PM BODY BUMPER Respiratory Rate 18 03/30/2024 2:50 PM BODY BUMPER Oxygen Saturation 99% 03/30/2024 2:50 PM BODY BUMPER Inhaled Oxygen Concentration - - Weight 74.8 kg (165 lb) 03/30/2024 2:50 PM BODY BUMPER Height 162.6 cm (5' 4) 03/30/2024 2:50 PM BODY BUMPER Body Mass Index 28.32 03/30/2024 2:50 PM BODY BUMPER Plan of Treatment Not on file Insurance [employer] OOS Care Teams Sample Tester Grinder Relationship Specialty Start Date End Date Unknown, Notinfile PCP - General 03/30/24
--- OUTSIDE RECORDS SUMMARY | 2024-11-01 08:20 | XMS_ITS | Clinical Summary ---
Author Organization [facility] [place] [address] Address [address] [place] [id number] Care Team Providers Care General Practitioner Name Role Phone Unknown, Notinfile Primary Care Provider Unavail able Allergies No known active allergies Medications No known medications Active Problems No known active problems Social History Tobacco Use Types Packs/Day Years Used Date Smoking Tobacco: Never Assessed Sex and Gender Information Value Date Recorded Sex Assigned at Not on file Legal Sex Male 10:51 AM WARPER FIXER Gender Identity Not on file Sexual Orientation Not on file Obstetrics History Last Filed Vital Signs Vital Sign Reading Time Taken Comments Blood Pressure 168/92 03/30/2024 2:50 PM WARPER FIXER Pulse 89 03/30/2024 2:50 PM WARPER FIXER Temperature 36.6 C (97.9 F) 03/30/2024 2:50 PM WARPER FIXER Respiratory Rate 18 03/30/2024 2:50 PM WARPER FIXER Oxygen Saturation 99% 03/30/2024 2:50 PM WARPER FIXER Inhaled Oxygen Concentration - - Weight 74.8 kg (165 lb) 03/30/2024 2:50 PM WARPER FIXER Height 162.6 cm (5' 4) 03/30/2024 2:50 PM WARPER FIXER Body Mass Index 28.32 03/30/2024 2:50 PM WARPER FIXER Plan of Treatment Health Maintenance Due Date Last Done Comments Colon Cancer Screening-Colonoscopy 1961 Depression Screening 1961 Hepatitis C Screening 1961 Prostate Cancer Screening-PSA 1961 DTaP/Tdap/Td Vaccine (1 - Tdap) 1972 Hepatitis B Screening 1979 Regular Well Visit/Exam 18-64 1979 Zoster Vaccine (1 of 2) 2011 Covid-19 Vaccine (3 - 2023-2 5 season) 2024 10/30/2020, 10/02/2020 Influenza Vaccine (Season Ended) 2025 Pneumococcal vaccine <65 Aged Out No longer eligible based on patient's age to complete this topic Insurance [id number] OOS Care Teams General Practitioner Relationship Specialty Start Date End Date Unknown, Notinfile PCP - General 03/30/24
[2024-11-01 18:50] LABS: Basophils Absolute Auto 0.1 K/mm3 (0.0-0.1); Basophils Percent Auto 0.8 % (0.2-1.2); Eosinophils Absolute Auto 0.5 K/mm3 (0-0.3); Eosinophils Percent Auto 7.9 % (0-4.4); Hematocrit 46.4 % (42.0-52.0); Hemoglobin 13.7 g/dL (14.0-18.0); Immature Granulocyte Absolute 0.03 K/mm3 (0.00-0.031); Immature Granulocyte Percent A 0.5 % (0-0.5); Lymphocytes Absolute Auto 2.54 K/mm3 (0.9-3.2); Mean Corpuscular HGB Conc 29.5 g/dl (32-36); Mean Platelet Volume 11.1 fl (7.4-10.4); Monocytes Absolute Auto 0.5 K/mm3 (0.1-0.6); Monocytes Percent Auto 8.2 % (2.6-8.5); Neutrophils Absolute Auto 2.6 K/mm3 (1.3-6.7); Neutrophils Percent Auto 41.6 % (45.5-73.1); Platelet Count Result 259 k/mm3 (150-375); Red Blood Count 5.95 M/mm3 (4.6-6.20); Red Cell Distribution Width 14.5 % (11.5-14.5); White Blood Count 6.2 K/mm3 (4.5-10.0)
[2024-11-01 19:14] LABS: Platelet Estimate Adequate (Adequate)
[2024-11-01 19:15] LABS: Band Neutrophils Percent 0 % (0-6); Hypochromasia 1+; Schistocytes None Seen
[2024-11-01 19:16] LABS: Microcytosis 1+ (NORMAL)
[2024-11-01 19:21] LABS: Alanine Aminotransferase 22 U/L (6-50); Albumin Level 4.1 g/dL (3.5-5.1); Alkaline Phosphatase 75 U/L (38-126); Anion Gap 7 mmol/L (4-12); Aspartate Amino Transferase 45 U/L (17-59); Bilirubin,Total 0.3 mg/dL (0.2-1.3); Blood Urea Nitrogen 16 mg/dL (9-20); Calcium 8.9 mg/dL (8.4-10.2); Carbon Dioxide 28 mmol/L (22-30); Chloride 103 mmol/L (98-107); Cholesterol 193 mg/dL (0-200); Estimated Glomerular Filt Rate > 60; Glucose 102 mg/dL (65-110); HDL Direct 58 mg/dL; Potassium 4.2 mmol/L (3.4-5.0); Sodium 138 mmol/L (137-145); Total Protein 7.5 g/dL (6.3-8.2); Triglycerides 76 mg/dL (<150)
[2024-11-01 19:33] LABS: LDL Cholesterol Direct 89 mg/dL
[2024-11-01 19:41] LABS: Hemoglobin A1C 5.9 % (<5.7)
== END 2024-11-01 08:15 | disposition home or self-care (01) ==
LOC: ANHGOSHLAB 08:15
PROVIDERS: PCP Internal Medicine; Visit Provider Nurse Practitioner
DX: R73.03 Prediabetes (principal); I10 Essential (primary) hypertension
CPT/HCPCS: 36415; 80053; 80061; 83036; 85025